=== PATIENT | male | born 2000 | race Caucasian/White ===

== ENCOUNTER 2022-04-26 17:03 | Emergency (ER) | payer OTHER, MEDICAID, SELFPAY ==
[2022-04-26 17:14] VITALS: BP 119/66; PULSE 58; RESP 18; TEMP 36.8; O2SAT 99
--- NOTE | 2022-04-26 17:20 | ED.SKABFB ---
HPI - Skin/Abscess/Foreign Bdy General Chief complaint: Skin/Abscess/Foreign Body Stated complaint: Rash Lt Arm Time Seen by Provider: 04/26/22 17:20 Source: patient, RN notes reviewed and old records reviewed Mode of arrival: ambulatory Limitations: no limitations History of Present Illness HPI narrative: 22-year-old male presents to the [facility] with complaints of a scabbed over areas to the left antecubital area and left anterior knee. Patient reports that area was draining. No fluctuance noted. Slightly reddened around scabbed over areas. Mom reports that of infection of skin and looks just the same. Denies fevers. No chest pain or abdominal pain. Related Data Allergies Allergy/AdvReac Type Severity Reaction Status Date / Time No Known Allergies Allergy Verified 04/26/22 17:16 Review of Systems Review of Systems: All systems reviewed & are unremarkable except as noted in HPI and below Constitutional: Constitutional: Reports no additional constitutional complaints, Denies chills and Denies fever(s) Eyes: Eyes: Reports no additional eye complaints ENT: Reports system reviewed and no additional complaints, except as documented Cardiovascular: Cardiovascular: Reports no additional cardiovascular complaints Respiratory: Respiratory: Reports no additional respiratory complaints Gastrointestinal: Gastrointestinal: Reports no additional gastrointestinal complaints Musculoskeletal: Musculoskeletal: Reports no additional musculoskeletal complaints Integumentary/Breasts: Skin/Breast: Reports as per HPI and Reports erythema (Scabbed over area) Neurologic: Reports system reviewed and no additional complaints, except as documented Psychiatric: Psychiatric: Reports no additional psychiatric complaints Allergic/Immunologic: Allergic/Immunologic: Reports no additional allergic/immunologic complaints PMFSH Past Medical History Medical History (Updated 04/26/22 @ 20:12 by Terri Ahuja APRN) Patient denies medical problems Social History Social History (Updated 04/26/22 @ 20:12 by Terri Ahuja APRN) Living arrangements: with family Gender identity (if verbalized by the patient): Male Comments At the time of my signature, I reviewed and agree with the nursing past medical, surgical, social, and family history. There is no relevant family history pertinent to the patient complaint. Exam Const: General: healthy appearing, no acute distress and alert Nutritional Appearance: well nourished Orientation/consciousness: patient oriented x3 Limitations: no limitations HENMT: Head: normal to inspection Ears: external ears normal Mouth: Yes Normal oral and palatal mucosa present, Yes lip normal and Yes moist mucous membranes Throat: posterior oropharynx normal Eyes: General: appearance normal, both eyes and all related structures Pupils: Equal, round and reactive pupils present Neck: Neck: normal visual inspection, no lymphadenopathy and no meningeal signs Chest: Chest palpation & inspection: normal inspection of the chest Resp: Effort & Inspection: normal respiratory effort and no use of accessory muscles Auscultation: clear to auscultation bilaterally, no crackles, no rales, no rhonchi and no wheezes Cardio: Rate: regular rate Rhythm: regular rhythm GI: GI Palp: Yes Soft to palpation and No Tenderness to palpation present (GI) Back/Spine/Pelvis: Cervical Spine: normal cervical lordosis Thoracic/Lumbar Spine: thoracic and lumbar spine normal to inspection Skin: General skin exam: normal color Rashes: no rashes Wounds: no wounds Other: Scabbed over areas left antecubital 4 areas that are scabbed above antecubital, 1 small area distal to antecubital area with surrounding erythema. They are mildly raised. 1 cm raised scabbed over area left anterior knee Neuro: General: patient oriented x3, moves all extremities, no meningeal signs and no focal motor deficits Cranial nerves: Yes Equal, round and react
== END 2022-04-26 17:56 | disposition home or self-care (01) ==
PROVIDERS: Emergency Provider Nurse Practitioner
DX: L01.00 Impetigo, unspecified (principal)
CPT/HCPCS: 87070; 87075; 87147; 87181; 87186; 87205; 99203; G0463

== ENCOUNTER 2022-07-01 20:08 | Emergency (ER) | payer OTHER, SELFPAY ==
[2022-07-01] VITALS (9 sets, daily range): BP systolic 117–129; BP diastolic 51–78; PULSE 83–84; RESP 14–18; TEMP 36.6; O2SAT 97–100
--- NOTE | ~2022-07-01 | CT_ITS ---
EXAMINATION: CT abdomen pelvis w con DATE: 07/01/2022 22:43 INDICATION: Generalized abdominal pain. Nausea and vomiting. TECHNIQUE: Computed tomography (CT) of the abdomen and pelvis was performed with 100 mL Omnipaque 350 intravenous contrast. Automated exposure control and iterative reconstruction technique were employe d. The dose-length product was 385.17 mGy-cm. COMPARISON: None. FINDINGS: The visualized portions of the lung bases are clear without pneumonia or pleural effusion. The heart size is normal. No pericardial effusion. The liver demonstrates focal steatosis adjacent to the falciform ligament. The gallbladder, spleen, pancreas, adrenal glands, and left kidney are lea l. There is a 6 mm cyst in right kidney. There are no dilated loops of bowel. The appendix is normal. There are no pathologically enlarged lymph nodes. There is no free intraperitoneal fluid. The bones are unremarkable. IMPRESSION: 1. No etiology for the patient's symptoms. Reviewed, dictated and finalized at location A. [employer]
--- NOTE | 2022-07-01 20:21 | ED.ABDPAIN ---
HPI - Abdominal Pain General Chief Complaint: Abdominal Pain Stated Complaint: N/V ABD PAIN Time Seen by Provider: 07/01/22 20:08 History of Present Illness HPI narrative: 22-year-old male with history of IBS presented to the emergency department for evaluation of nausea vomiting diarrhea and diffuse abdominal pain that started approximately 3 PM today. Patient states that he did not have any sick contacts and denies any food prior to onset of symptoms. Patient does have history of IBS but states this was worse than his typical IBS. Patient called EMS and was treated with Zofran in route to the ED and feels significantly improved. Patient is denying any complaints at this time. Patient denies any prior history of abdominal surgeries but does have history of tonsillectomy Related Data Allergies Allergy/AdvReac Type Severity Reaction Status Date / Time No Known Allergies Allergy Verified 07/01/22 20:22 Review of Systems Review of Systems: CONSTITUTIONAL: Denies fever, chills, or sweats. EYES: Denies visual changes, redness, or discharge. ENT: Denies rhinorrhea, congestion, sore throat, or otalgia. CARDIOVASCULAR: Denies chest pain, palpitations, or edema. RESPIRATORY: Denies cough or dyspnea. GASTROINTESTINAL: See HPI GENITOURINARY: Denies dysuria or hematuria. SKIN: Denies rash or itching. MUSCULOSKELETAL: Denies back pain, joint pain, or myalgia. NEUROLOGIC: Denies headache, numbness, or weakness. [facility] Past Medical History Medical History (Updated 07/01/22 @ 23:06 by Tushar Michel MD) Patient denies medical problems Social History Social History (Updated 04/26/22 @ 20:12 by Terri Ahuja APRN) Gender identity (if verbalized by the patient): Male Exam Narrative: APPEARANCE: Well appearing, no pain, no distress, well-nourished. HEAD: normocephalic, atraumatic. EYES: PERRLA/EOMI, conjunctivae clear. NOSE: Normal no drainage NECK: Supple. No adenopathy, no masses. RESPIRATORY: Airway patent, respirations nonlabored. Clear to auscultation bilaterally, no rales, rhonchi, wheezing. CARDIOVASCULAR: Regular rate and rhythm without murmurs rubs or gallops. ABDOMINAL: Soft, nontender, nondistended, normal bowel sounds MUSCULOSKELETAL: Moves all extremities. Strength/ROM intact, No edema, No calf tenderness. NEURO: Alert. Cranial nerves II through XII intact. Grossly intact SKIN: Warm, dry. Normal Color Course Course Emergency Course: Patient felt improved with treatment. Patient's nausea and abdominal pain were controlled. Patient was tolerating p.o. Patient was afebrile but did have a leukocytosis of 14.2. CMP was generally within normal limits. CT scan showed aspiration for the patient's symptoms. Patient family reviewing the results of the work-up and they were comfortable with plan for discharge and close follow-up. Patient was provided Zofran for home. Suspect viral etiology for the patient's symptoms versus his IBS. Vital Signs Vital signs: Vital Signs Temperature 98 F 07/01/22 20:11 Pulse Rate 84 07/01/22 20:11 Respiratory Rate 14 07/01/22 20:11 Blood Pressure 129/78 07/01/22 20:11 Pulse Oximetry 100 07/01/22 20:11 Oxygen Delivery Room Air 07/01/22 20:11 Temperature 98 F 07/01/22 20:11 Pulse Rate 75 07/02/22 00:54 Respiratory Rate 18 07/02/22 00:54 Blood Pressure 134/70 07/02/22 00:54 Pulse Oximetry 100 07/02/22 00:54 Oxygen Delivery Room Air 07/01/22 20:11 MDM - Abdominal Pain Lab Data Result diagrams: 07/01/22 21:07 07/01/22 21:07 Labs: Lab Results 07/01/22 07/01/22 07/01/22 Range/Units 21:07 21:07 21:07 WBC 14.2 H (4.5-10.0) K/mm3 RBC 5.59 (4.6-6.20) M/mm3 Hgb 17.1 (14.0-18.0) g/dL Hct 50.0 (42.0-52.0) % MCV 89.4 (80-100) fl MCH 30.6 (26-34) pg MCHC 34.2 (32-36) g/dl RDW 13.2 (11.5-14.5) % Plt Count 310 (150-375) k/mm3 MPV 8.8 (7.4-10.4) fl Immat
[2022-07-01] MEDS: SODIUM CHLORIDE 0.9% IV 1,000 ML 999 ML IV CONT ×2 (20:54→21:11)
[2022-07-01] MEDS: METOCLOPRAMIDE HCL INJ 10 MG/2 ML VIAL IV PUSH (21:11)
[2022-07-01 21:13] LABS: Basophils Absolute Auto 0.1 K/mm3 (0.0-0.1); Basophils Percent Auto 0.5 % (0.2-1.2); Hemoglobin 17.1 g/dL (14.0-18.0); Immature Granulocyte Absolute 0.23 K/mm3 (0.00-0.031); Immature Granulocyte Percent A 1.6 % (0-0.5); Lymphocytes Absolute Auto 1.17 K/mm3 (0.9-3.2); Lymphocytes Percent Auto 8.2 % (18.3-44.2); Mean Corpuscular HGB Conc 34.2 g/dl (32-36); Mean Corpuscular Hemoglobin 30.6 pg (26-34); Mean Corpuscular Volume 89.4 fl (80-100); Mean Platelet Volume 8.8 fl (7.4-10.4); Monocytes Absolute Auto 0.5 K/mm3 (0.1-0.6); Monocytes Percent Auto 3.7 % (2.6-8.5); Neutrophils Absolute Auto 12.2 K/mm3 (1.3-6.7); Platelet Count Result 310 k/mm3 (150-375); Red Blood Count 5.59 M/mm3 (4.6-6.20); Red Cell Distribution Width 13.2 % (11.5-14.5); White Blood Count 14.2 K/mm3 (4.5-10.0)
[2022-07-01 21:24] LABS: Lactic Acid Reflex 1.2 mmol/L (0.7-2.0)
[2022-07-01 21:37] LABS: Alanine Aminotransferase 35 U/L (6-50); Alkaline Phosphatase 88 U/L (38-126); Anion Gap 33 mmol/L (8-16); Aspartate Amino Transferase 50 U/L (17-59); Bilirubin,Total 1.3 mg/dL (0.2-1.3); Blood Urea Nitrogen 19 mg/dL (9-20); Calcium 9.9 mg/dL (8.4-10.2); Carbon Dioxide 11 mmol/L (22-30); Chloride 95 mmol/L (98-107); Estimated CRCL calculation 92 ml/min; Estimated Glomerular Filt Rate > 60; Glucose 81 mg/dL (65-110); Lipase 62 U/L (23-300); Potassium 4.2 mmol/L (3.4-5.0); Sodium 139 mmol/L (137-145)
[2022-07-01 21:59] LABS: Albumin Level > 6.0 g/dL (3.5-5.1)
[2022-07-01] MEDS: HYDROmorphone HCL INJ (*CRX) 1 MG/ML SYR 0.5 MG IV PUSH (22:49)
--- NOTE | 2022-07-01 23:26 | PC.NURSE ---
Patient report given to ARCHANA Garcia. All questions answered and care of patient transferred.
[2022-07-02 00:54] VITALS: BP 134/70; PULSE 75; RESP 18; O2SAT 100
== END 2022-07-02 00:56 | disposition home or self-care (01) ==
PROVIDERS: Emergency Provider Emergency Medicine
DX: R11.2 Nausea with vomiting, unspecified (principal); R10.9 Unspecified abdominal pain; K58.9 Irritable bowel syndrome, unspecified
CPT/HCPCS: 36415; 74177; 80053; 83605; 83690; 85025; 96361; 96374; 96375; 99284; J1170; J2765; J7030; Q9967